=== PATIENT | male | born 1995 | race Caucasian/White ===

== ENCOUNTER 2017-11-05 16:11 | Emergency (ER) | payer SELFPAY ==
--- NOTE | 2017-11-05 16:39 | ED Physician Chart ---
ED Chief Complaint/HPI - Patient Information Date Seen:: 11/05/17 Time Seen:: 16:39 Chief Complaint:: PAIN IN RIGHT UPPER QUADRANT SINCE 4 AM History of Present Illness:: This 22-year-old male had onset of severe right flank and right upper quadrant pain at 4 AM this morning. The patient has had renal colic in the past times one 4 years ago. The pain was at its worse he described it as a 8-9/10. The pain was dull and throbbing and radiated after some time to the suprapubic region. For the past 2-3 days the patient has awakened in the morning and had either dark urine or what appeared to be blood in his urine. She denies any associated fever, chills or diaphoresis. This morning he experienced nausea followed by 6 episodes of vomiting. He has had no chills. Today the patient thought he saw a small black specks of what look like "fish food "which she cannot recall having had in the past. Allergies:: Allergies Allergy/AdvReac Type Severity Reaction Status Date / Time No Known Allergies Allergy Verified 11/05/17 16:26 Vitals:: Vital Signs - 8 hr 11/05/17 16:26 Temp 98.2 F HR 68 RR 16 BP 116/70 O2 Sat % 97 Historian:: Patient ED Review of Systems - Review of Systems General/Constitutional: No fever, No chills, No weakness, No diaphoresis, No edema Skin: No skin lesions, No rash, No bruising Head: No headache, No light-headedness Eyes: No loss of vision, No diplopia ENT: No earache, No sore throat, No tinnitus Neck: No neck pain, No thyromegaly, No stiffness, No mass noted Cardio Vascular: No chest pain, No palpitations, No edema Pulmonary: No SOB, No cough, No sputum, No wheezing GI: Nausea, Vomiting, No diarrhea, Pain, No constipation, No hematemesis G/U: Dysuria, Frequency, Hematuria, No nacturia Musculoskeletal: No bone or joint pain, No back pain, No muscle pain Hematopoietic: No bruising, No lymphadenopathy Allergic/Immuno: No urticaria, No angioedema Neurological: No syncope, No focal symptoms, No weakness, No headache, No seizure, No dizziness, No confusion, No vertigo Family Medical History - Family Member Mother History Unknown: Yes ED Physical Exam - Physical Examination General/Constitutional: Awake, Ambulatory Other Gen/Cons comments:: Alfred 22-year-old male in mild distress. Head: Atraumatic Eyes: Lids, conjuctiva normal, PERRL, EOMI Other Eyes comments:: Sclerae anicteric Skin: Nl inspection, No rash, No skin lesions, No ecchymosis, Well hydrated, No lymphadenopathy ENMT: External ears, nose nl, TM canals nl, Nasal exam nl, Lips, teeth, gums nl , Oropharynx nl, Tonsils nl Neck: Nontender, Full ROM w/o pain, No nuchal rigidity, No bruit, No mass Other Neck comments:: Neck is too thick to evaluate JVD. Respiratory: Nl effort/Exclusion, No Wheeze/Rhonchi/Rales GI: No hernia, No McBurney tenderness Other GI comments:: Patient's abdomen is mildly distended due to obesity. He has stretch leiva over the lower abdomen in both the right and left lower quadrants. Bowel sounds are normal. There is mild tenderness to palpation in the right lower quadrant with no associated rebound or guarding. The liver is not palpable and no pulsitive masses are found in the abdomen. Rectal examination deferred at my discretion Other comments:: There was mild right-sided CVA tenderness to percussion and no left-sided CVA tenderness. Good pedal pulses in both feet. Extremities: No tenderness or effusion, normal strength in all extremities, No edema Neuro/Psych: Alert/oriented, DTR's symmetric, Normal sensory exam, Normal motor strength, Judgement/insight normal, Mood normal, Normal gait, No focal deficits Misc: Normal back, No paraspinal tenderness ED Assessment - Assessment General Assessment: URETERAL COLIC MDM RT FLANK PAIN: NOT LEAKING AAA BASED ON HISTORY AND PHYSICAL EXAMINATION. NOT AORTIC DISECTION BASED ON PT'S AGE, HISTORY AND PHYSICAL EXAM ED Septic Shock - . Is Septic Shock (SBP<90, OR Lactate>4 mmol\\L) present?: No - <6hrs of presentation: Vital Signs: Vital Signs - 8 hr 11/05/17 16:26 Temp 98.2 F HR 68 RR 16 BP 116/70 O2 Sat % 97 ED Reassessment (Disposition) - Reassessment Reassessment Condition:: Improved - Diagnosis Diagnosis:: URETERAL COLIC - Aftercare/Follow up Instructions Aftercare/Follow-Up Instructions:: Counseled pt regarding lab results/diagnosis & need follow up - Patient Disposition Discharge/Transfer:: Home ED Discharge Plan - Patient Disposition Admit/Discharge/Transfer: PT DISCHARGED HOME Condition at Disposition: Stable Instructions: Ureteral Colic
[2017-11-05 17:10] LABS: URINE BILIRUBIN NEGATIVE (NEGATIVE); URINE BLOOD NEGATIVE (NEGATIVE); URINE GLUCOSE (UA) NEGATIVE (NEGATIVE); URINE KETONE NEGATIVE (NEGATIVE); URINE LEUKOCYTE ESTERASE NEGATIVE (NEGATIVE); URINE NITRATE NEGATIVE (NEGATIVE); URINE PH 6.5 (4.6 - 8.0); URINE PROTEIN NEGATIVE (NEGATIVE); URINE SOURCE RANDOM; URINE UROBILINOGEN 0.2 E.U./dL (0.2 - 1.0)
[2017-11-05 17:15] LABS: URINE CLARITY CLEAR (CLEAR); URINE COLOR YELLOW
[2017-11-05 17:16] LABS: URINE MICROSCOPIC INDICATED? NO
[2017-11-05] MEDS ORDERED: Morphine Sulfate 4 mg/mL 1mL Syr ONE (17:39)
[2017-11-05] MEDS: Sodium Chloride 0.9% 2,000 ML IV ONE (17:42)
== END 2017-11-05 18:50 | disposition home or self-care (01) ==
LOC: ER 16:11
DX: N23 Unspecified renal colic (principal)
CPT/HCPCS: 99284; 96374; 96375; 81003; J1885; J2405; Z7502

== ENCOUNTER 2017-11-07 11:25 | Emergency (ER) | payer MEDICAID ==
--- NOTE | 2017-11-07 11:41 | ED Physician Chart ---
ED Chief Complaint/HPI - Patient Information Date Seen:: 11/07/17 Time Seen:: 11:30 Chief Complaint:: rt flank pain History of Present Illness:: 22 yr old male with hx of kidney stones with rt side flank pain since discharge from here last wednesday no vomiting or fever or hematuria pain moderate no radiation of pain or other aggravating factors. Allergies:: Allergies Allergy/AdvReac Type Severity Reaction Status Date / Time No Known Allergies Allergy Verified 11/05/17 16:26 Vitals:: Vital Signs - 8 hr 11/07/17 11:32 Temp 98.6 F HR 77 RR 19 BP 134/77 O2 Sat % 97 Family Medical History - Family Member Mother History Unknown: Yes ED Septic Shock - . Is Septic Shock (SBP<90, OR Lactate>4 mmol\L) present?: No - <6hrs of presentation: Vital Signs: Vital Signs - 8 hr 11/07/17 11:32 Temp 98.6 F HR 77 RR 19 BP 134/77 O2 Sat % 97 ED Discharge Plan - Patient Disposition Admit/Discharge/Transfer: PT DISCHARGED HOME
[2017-11-07] MEDS ORDERED: Sodium Chloride 0.9% 1,000 ML IV ONE ×2 (11:47→13:31)
[2017-11-07 12:06] LABS: URINE MICROSCOPIC INDICATED? YES; URINE SOURCE CLEAN C
[2017-11-07 12:09] LABS: % EOSINOPHILS 1.1 % (0.0-5.0); % LYMPHOCYTES 16.1 % (20.0-50.0); % MONOCYTES 7.1 % (2.0-10.0); % NEUTROPHILS 75.7 % (40.0-80.0); EOSINOPHILE ABSOLUTE 0.1 Th/cmm (0.1-0.4); HEMATOCRIT 41.9 % (41.0-60); HEMOGLOBIN 14.1 gm/dL (12-16); LYMPHOCYTE ABSOLUTE 1.6 Th/cmm (1.5-3.0); MEAN CELL VOLUME 89.1 fl (80-99); MEAN CORPUSCULAR HEMOGLOBIN 29.9 pg (26.0-30.0); MEAN CORPUSCULAR HGB CONC 33.6 pg (28.0-36.0); MEAN PLATELET VOLUME 7.5 fl; MONOCYTE ABSOLUTE 0.7 Th/cmm (0.3-1.0); NEUTROPHILE ABSOLUTE 7.6 Th/cmm (1.8-8.0); PLATELET COUNT 283 Th/cmm (150-400); RED CELL DISTRIBUTION WIDTH 12.5 % (11.5-20.0)
[2017-11-07 12:10] LABS: URINE BILIRUBIN NEGATIVE (NEGATIVE); URINE BLOOD MODERATE (NEGATIVE); URINE GLUCOSE (UA) NEGATIVE (NEGATIVE); URINE KETONE NEGATIVE (NEGATIVE); URINE LEUKOCYTE ESTERASE NEGATIVE (NEGATIVE); URINE NITRATE NEGATIVE (NEGATIVE); URINE PH 6.5 (4.6 - 8.0); URINE PROTEIN NEGATIVE (NEGATIVE); URINE UROBILINOGEN 0.2 E.U./dL (0.2 - 1.0)
[2017-11-07 12:12] LABS: URINE CLARITY CLEAR (CLEAR); URINE COLOR YELLOW
[2017-11-07 12:28] LABS: ALB/GLOB RATIO 1.5 (1.0-1.8); ALBUMIN 4.1 gm/dL (4.2-5.5); ALKALINE PHOSPHATASE 67 U/L (34-104); BILIRUBIN,TOTAL 0.4 mg/dL (0.3-1.0); BUN - UREA NITROGEN 13 mg/dL (7-25); CALCIUM SERUM 8.9 mg/dL (8.6-10.3); CARBON DIOXIDE 26.1 mEq/L (21.0-31.0); CHLORIDE 104 mEq/L (98-107); CREATININE - SERUM 1.1 mg/dL (0.7-1.3); GFR AFRICAN-AMERICAN > 60.0 ml/min (>90); GFR NON AFRICAN-AMERICAN > 60.0 ml/min; GLUCOSE 110 mg/dL (70-105); POTASSIUM SERUM 4.1 mEq/L (3.5-5.1); SGOT 20 U/L (13-39); SGPT/ALT 25 U/L (7-52); SODIUM SERUM 136 mEq/L (136-145); TOTAL PROTEIN,SERUM 6.9 gm/dL (6.0-8.3)
[2017-11-07 12:30] LABS: URINE BACTERIA FEW /hpf (NONE SEEN); URINE EPITHELIAL CELLS OCCASIONAL /lpf (FEW); URINE WBC 0-2 /hpf (0-5)
--- NOTE | 2017-11-08 10:33 | Diagnostic Imaging Report ---
Exam: CT examination abdomen pelvis HISTORY: Right flank pain Total DLP equals 958 CTDI equals Findings: Multiple contiguous thin section of the abdomen pelvis obtained from lower thorax to pubic symphysis without the administration of contrast material per renal calculus protocol. The study demonstrates some normal aeration of lung parenchyma the bases. The liver and spleen intact. The pancreas is normal. The gallbladder is normal. There is evidence for right-sided hydronephrosis with approximately 2 mm calculus impacted in the right distal ureter subsequent right-sided hydroureter Left kidney is intact. There is no evidence of diverticulitis. No free fluid is noted. The urinary bladder is intact. The prostate gland is normal IMPRESSION : 2 mm calculus impacted in distal right ureter with right-sided mild hydronephrosis.
== END 2017-11-07 14:15 | disposition home or self-care (01) ==
LOC: ER 11:25
DX: N20.0 Calculus of kidney (principal)
CPT/HCPCS: 36415-UA; 80053-TC; 81001-TC; 85025-TC; 87086-90; J1885; J7030